=== PATIENT | female | born 1970 | race Asian ===

== ENCOUNTER → 2021-10-26 | Day surgery (SDC) | payer BC ==
[~2021-10-26] MED LIST: FENTANYL CITRATE/PF 100MCG/2 ML INJ ONE; HYOSCYAMINE SULFATE 0.5 MG/ML INJ ONE; MIDAZOLAM HCL 2 MG/2 ML VIAL ONE; PROPOFOL IV EMULSION 10 MG/ML 20 ML VIAL ONE
[2021-10-26 08:45] VITALS: BP 115/63
== END | disposition home or self-care (01) ==
LOC: OR 06:24 → EDSEX 07:30
PROVIDERS: ATTEND Internal Medicine Gastroenterology
DX: Z12.11 Encounter for screening for malignant neoplasm of colon (principal); D12.0 Benign neoplasm of cecum; D12.4 Benign neoplasm of descending colon; Z01.810 Encounter for preprocedural cardiovascular examination
CPT/HCPCS: 45385; 81025; 93005; J1980; J2250; J2704; J3010; 45378